=== PATIENT | male | born 1965 | race Caucasian/White ===

== ENCOUNTER 2017-02-11 21:38 | Emergency (ER) | payer SELFPAY ==
[~2017-02-11] VITALS: Ht 172.7 cm; Wt 65.8 kg
[~2017-02-11 21:38] MED LIST: LEVE750T3 PO; PHEN100C3 PO
--- NOTE | 2017-02-11 21:38 | NUR ---
[facility] ALS TO ER BED 4
[2017-02-11 21:45] VITALS: BP 127/60
[2017-02-11] MEDS ORDERED: levETIRAcetam 1,000 MG in NACL 0.9% 100 ML IV ONE (21:45)
[2017-02-11] MEDS ORDERED: PHENYTOIN 1,000 MG in NACL 0.9% 100 ML IV ONE (21:45)
--- NOTE | 2017-02-11 21:45 | NUR ---
Patient being evaluated by physician at bedside.
--- NOTE | 2017-02-11 21:50 | NUR ---
51Y/M PT. BIBA TO ED WITH C/O SEIZURE X 30 MINS. PER EMS;PT. HAD EPISODE OF CLONIC-TONIC SEIZURE < 2 MINS, HX. SEIZURE ON KEPRA AND DILANTIN, NONCOMPLIANT TO MEDICATION, BS 145 ON SCENE. AAO X4, AMBULATE WITH ASSIST. RESPIRATIONS ROOM AIR, EVEN AND UNLABORED. BILATERAL LUNGS CLEAR, NO SOB NOR CP. GCS 15, SKIN WARM AND DRY. NO C/O PAIN AND DISCOMFORT AT THIS TIME. SEIZURE PAD IN PLACE. VSS, ER MD MADE AWARE OF PT. STATUS.
[2017-02-11] MEDS ORDERED: PHENYTOIN 250 MG/5 ML VIAL IV ONE (22:01)
[2017-02-11] MEDS ORDERED: levETIRAcetam 100 MG/ML VIAL IV ONE (22:02)
[2017-02-11 22:26] LABS: EOSINOPHILS # (AUTO) 0.1 K/uL (0-0.4); HEMOGLOBIN 12.2 g/dL (12.0-18.0); LYMPHOCYTES # (AUTO) 0.4 K/uL (2.0-11.5); MONOCYTES # (AUTO) 0.3 K/uL (0.8-1.0); MONOCYTES % (AUTO) 6.7 % (1.7-9.3)
[2017-02-11 22:35] LABS: BASOPHILS % (AUTO) 0.9 % (0.0-2.0); MEAN CORPUSCULAR HEMOGLOBIN 32 pg (27-31); MEAN CORPUSCULAR HGB CONC 33 g/dL (33-37); MEAN CORPUSCULAR VOLUME 98 fL (80-94); NEUTROPHILS # (AUTO) 4.3 K/uL (1.8-7.7); NEUTROPHILS % (AUTO) 83.3 % (42.2-75.2); RED BLOOD CELL COUNT(AUTO) 3.78 MIL/uL (4.20-6.10); RED CELL DISTRIBUTION WIDTH 13.3 % (11.6-13.7); WHITE BLOOD COUNT (AUTO) 5.1 K/uL (4.8-10.8)
[2017-02-11 22:38] LABS: LYMPHOCYTES % (AUTO) 8.1 % (20.5-51.1); PLATELET COUNT (AUTO) 68 K/uL (140-450)
[2017-02-11 22:41] LABS: ALANINE AMINOTRANSFERASE 31 U/L (16-63); ALBUMIN 4.4 g/dL (3.4-5.0); ALCOHOL, BLOOD < 3 mg/dL (<3); ALKALINE PHOSPHATASE 93 U/L (46-116); ANION GAP 16.5 (8-16); ASPARTATE AMINOTRANSFERASE 47 U/L (15-37); CALCIUM 9.5 mg/dL (8.5-10.1); CARBON DIOXIDE 29.7 mmol/L (21-32); CHLORIDE 94 mmol/L (98-107); CREATININE 1.1 mg/dL (0.7-1.3); GFR ARICAN-AMERICAN 91 mL/min (>90); GFR NON ARICAN-AMERICAN 75 mL/min (>90); GLUCOSE 109 mg/dL (74-106); POTASSIUM 3.2 mmol/L (3.5-5.1); SODIUM SERUM 137 mmol/L (136-145); TOTAL BILIRUBIN 1.7 mg/dL (0.0-1.0); TOTAL PROTEIN, SERUM 8.7 g/dL (6.4-8.2); UREA NITROGEN, BLOOD 16 mg/dL (7-18)
--- NOTE | 2017-02-11 23:00 | NUR ---
Patient appears to be resting comfortably in bed. Vital Signs within normal limits. Respirations even and unlabored.
--- NOTE | 2017-02-12 01:50 | NUR ---
Patient appears to be resting comfortably in bed. Vital Signs within normal limits. Respirations even and unlabored.
--- NOTE | 2017-02-12 05:05 | NUR ---
Patient appears to be resting comfortably in bed. Vital Signs within normal limits. Respirations even and unlabored.
[2017-02-12 05:28] VITALS: BP 109/72
--- NOTE | 2017-02-12 05:30 | NUR ---
Patient discharged with v/s stable. Written and verbal after care instructions given and explained. Patient alert, oriented and verbalized understanding of instructions. Ambulatory with steady gait. All questions addressed prior to discharge. ID band removed. Patient advised to follow up with PMD. Rx of KEPRA 500 MG, DILANTIN 100 MG given. Patient educated on indication of medication including possible reaction and side effects. Opportunity to ask questions provided and answered.
== END 2017-02-12 05:30 | disposition home or self-care (01) ==
LOC: MED 21:38
DX: G40.802 Other epilepsy, not intractable, without status epilepticus (principal)
CPT/HCPCS: 36415; 80053; 85025; 96365; 96367; 99284; G0482; J1165; J1953